=== PATIENT | male | born 1970 | race Caucasian/White ===

== ENCOUNTER → 2018-12-10 | Outpatient (CLI) | payer BC, OTHER ==
--- NOTE | 2018-12-10 11:21 | CT ---
EXAM DESCRIPTION: CT ABDOMEN AND PELVIS WITH CONTRAST CLINICAL HISTORY: LEFT LOWER QUADRANT PAIN COMPARISON: None Available. TECHNIQUE: CT of the abdomen and pelvis are performed during IV bolus administration of usual adult dose of nonionic iodinated contrast. Oral contrast media is administered as well. FINDINGS: In the lower chest, the lung bases are clear. Heart size is normal. CT abdomen Density liver consistent with mild diffuse hepatic steatosis Otherwise the liver, spleen, pancreas, gallbladder, adrenal glands, stomach and kidneys are unremarkable in appearance. No inflammation around the pancreas. No renal stones or hydronephrosis. Delayed images show normal contrast in the urinary collecting systems. No filling defects in the renal pelves, ureters or bladder. No bowel dilatation to suggest obstruction. No free air or free fluid. CT pelvis Appendix appears normal with contrast in the lumen. No inflammation around the cecum or terminal ileum or sigmoid colon. There is diverticulosis of the sigmoid colon but no acute inflammatory changes to suggest acute diverticulitis. Bladder and distal ureters are negative for stones. Postcontrast delayed images show positive contrast in the distal ureters and bladder. Normal enhancement of pelvic vessels. No inguinal or lower pelvic adenopathy. Prominent prostate measures 4 cm in transverse dimension. No inguinal or lower pelvic adenopathy. Bone window images are negative for fracture or lytic lesion. Degenerative changes in the hip joints and SI joints. Coronal and sagittal reformatted images confirm the findings. IMPRESSION: No acute upper abdominal process. No acute process in the pelvis. This exam was performed according to our departmental dose-optimization program, which includes automated exposure control, adjustment of the mA and/or kV according to patient size and/or use of iterative reconstruction technique. Total DLP equals 2152.79 mGycm. Electronically signed by: Jose Miguel Mckay MD 12/10/2018 11:19 AM CDT
== END ==
LOC: CT 08:26
PROVIDERS: ATTEND General Practice
DX: R10.32 Left lower quadrant pain (principal)